=== PATIENT | female | born 1990 | race African-American/Black ===

== ENCOUNTER 2019-01-10 12:44 | Emergency (ER) | payer SELFPAY ==
--- NOTE | 2019-01-10 14:16 | ER ---
Nurse's Notes [facility] Name: Felicia Barnhart Age: 28 yrs Sex: Female : 1990 Arrival Date: 01/10/2019 Time: 12:46 Bed 20 Private MD: Diagnosis: Influenza due to certain identified influenza viruses Presentation: 01/10 13:00 Presenting complaint: Patient states: cough, body aches, headache, chills that began aa5 yesterday. Transition of care: patient was not received from another setting of care. Onset of symptoms was December 2018. Risk Assessment: Do you want to hurt yourself or someone else? Patient reports no desire to harm self or others. Care prior to arrival: None. 13:00 Method Of Arrival: Ambulatory aa5 13:00 Acuity: ZAC 4 aa5 13:05 Initial Sepsis Screen: Does the patient meet any 2 criteria? HR > 90 bpm. No. Patient's bp initial sepsis screen is negative. Does the patient have a suspected source of infection? Yes: Productive cough/pneumonia. Triage Assessment: 13:05 General: Appears in no apparent distress. comfortable, Behavior is calm, cooperative, bp appropriate for age. Pain: Complains of pain in GENERAL MYALGIA. EENT: Reports nasal congestion. Neuro: No deficits noted. Cardiovascular: No deficits noted. Respiratory: Reports cough that is. GI: No signs and/or symptoms were reported involving the gastrointestinal system. : No signs and/or symptoms were reported regarding the genitourinary system. Derm: No deficits noted. Musculoskeletal: Circulation, motion, and sensation intact. Range of motion: intact in all extremities. MANAGER ENT: 13:02 LMP 12/31/2018 aa5 Historical: - Allergies: 13:02 No Known Allergies; aa5 - Home Meds: 13:02 None [Active]; aa5 - PMHx: 13:02 None; aa5 - PSHx: 13:02 ; aa5 - Immunization history:: Flu vaccine is not up to date. - Social history:: Smoking status: Patient/guardian denies using tobacco. - Ebola Screening: : No symptoms or risks identified at this time. Screenin:05 Abuse screen: Denies threats or abuse. Denies injuries from another. Nutritional bp screening: No deficits noted. Tuberculosis screening: No symptoms or risk factors identified. Fall Risk None identified. Assessment: 13:05 General: SEE TRIAGE NOTE. bp 14:44 Reassessment: PT D/C HOME AMBULATORY WITH FAMILY, DX WITH INFLUENZA. bp Vital Signs: 13:02 BP 106 / 73; Pulse 110; Resp 18 S; Temp 99.8(O); Pulse Ox 97% on R/A; Weight 99.79 kg aa5 (R); Height 5 ft. 11 in. (180.34 cm) (R); Pain 9/10; 14:48 BP 111 / 69; Pulse 97; Resp 18; Temp 99; Pulse Ox 98% ; bp 13:02 Body Mass Index 30.68 (99.79 kg, 180.34 cm) aa5 ED Course: 12:46 Patient arrived in ED. as 13:01 Triage completed. aa5 13:01 Arm band placed on. aa5 13:04 Chuy Amezquita PA is PHCP. jr8 13:04 Peter Segura MD is Attending Physician. jr8 13:05 Patient has correct armband on for positive identification. Bed in low position. Call bp light in reach. Side rails up X2. 13:10 Jose Alejandro Whitaker, RN is Primary Nurse. bp 13:39 Influenza Screen (a \T\ B) Sent. hb 13:39 Strep Sent. hb 14:48 No provider procedures requiring assistance completed. Patient did not have IV access bp during this emergency room visit. Administered Medications: 14:10 Drug: Tamiflu 75 mg Route: PO; bp 14:49 Follow up: Response: No adverse reaction; Medication administered at discharge. bp Outcome: 14:15 Discharge ordered by . [facility] 14:46 Discharged to home ambulatory, with family. bp 14:46 Condition: stable 14:46 Discharge instructions given to patient, Instructed on discharge instructions, follow up and referral plans. medication usage, Demonstrated understanding of instructions, follow-up care, medications, Prescriptions given X 3. 14:49 Patient left the ED. bp Signatures: Marcie Carter Audri, RN RN aa5 Chuy Amezquita PA PA jr8 Mya Daly RN RN Jose Alejandro Whitaker RN RN bp
--- NOTE | 2019-01-10 14:16 | EDPHYS ---
Physician Documentation [facility] Name: Felicia Barnhart Age: 28 yrs Sex: Female : 1990 Arrival Date: 01/10/2019 Time: 12:46 Bed 20 Private MD: ED Physician Peter Segura HPI: 01/10 13:29 This 28 yrs old Black Female presents to ER via Ambulatory with complaints of Flu jr8 Symptoms. 13:29 Onset: The symptoms/episode began/occurred acutely, yesterday. Associated signs and jr8 symptoms: Pertinent positives: cough, fever, headache. Modifying factors: The patient symptoms are alleviated by nothing, the patient symptoms are aggravated by nothing. The patient has not experienced similar symptoms in the past. The patient has not recently seen a physician. HEALTH SUPPORT SPECIALIST: 13:02 LMP 12/31/2018 aa5 Historical: - Allergies: 13:02 No Known Allergies; aa5 - Home Meds: 13:02 None [Active]; aa5 - PMHx: 13:02 None; aa5 - PSHx: 13:02 ; aa5 - Immunization history:: Flu vaccine is not up to date. - Social history:: Smoking status: Patient/guardian denies using tobacco. - Ebola Screening: : No symptoms or risks identified at this time. ROS: 13:29 Eyes: Negative for injury, pain, redness, and discharge, Neck: Negative for injury, jr8 pain, and swelling, Cardiovascular: Negative for chest pain, palpitations, and edema, Abdomen/GI: Negative for abdominal pain, nausea, vomiting, diarrhea, and constipation, Back: Negative for injury and pain, MS/Extremity: Negative for injury and deformity, Skin: Negative for injury, rash, and discoloration. 13:29 Constitutional: Positive for body aches, chills, fever. 13:29 Respiratory: Positive for cough, with no reported sputum, Negative for dyspnea on exertion, shortness of breath, sputum production, wheezing. 13:29 Neuro: Positive for headache, Negative for altered mental status, dizziness, gait disturbance, hearing loss, loss of consciousness, numbness, seizure activity, speech changes, syncope, near syncope, tingling, tinnitus, tremor, visual changes, weakness. Exam: 13:30 Eyes: Pupils equal round and reactive to light, extra-ocular motions intact. Lids and jr8 lashes normal. Conjunctiva and sclera are non-icteric and not injected. Cornea within normal limits. Periorbital areas with no swelling, redness, or edema. ENT: Nares patent. No nasal discharge, no septal abnormalities noted. Tympanic membranes are normal and external auditory canals are clear. Oropharynx with no redness, swelling, or masses, exudates, or evidence of obstruction, uvula midline. Mucous membranes moist. Neck: Trachea midline, no thyromegaly or masses palpated, and no cervical lymphadenopathy. Supple, full range of motion without nuchal rigidity, or vertebral point tenderness. No Meningismus. Cardiovascular: Regular rate and rhythm with a normal S1 and S2. No gallops, murmurs, or rubs. Normal PMI, no JVD. No pulse deficits. Respiratory: Lungs have equal breath sounds bilaterally, clear to auscultation and percussion. No rales, rhonchi or wheezes noted. No increased work of breathing, no retractions or nasal flaring. Abdomen/GI: Soft, non-tender, with normal bowel sounds. No distension or tympany. No guarding or rebound. No evidence of tenderness throughout. Back: No spinal tenderness. No costovertebral tenderness. Full range of motion. Skin: Warm, dry with normal turgor. Normal color with no rashes, no lesions, and no evidence of cellulitis. MS/ Extremity: Pulses equal, no cyanosis. Neurovascular intact. Full, normal range of motion. Neuro: Awake and alert, GCS 15, oriented to person, place, time, and situation. Cranial nerves II-XII grossly intact. Motor strength 5/5 in all extremities. Sensory grossly intact. Cerebellar exam normal. Normal gait. Vital Signs: 13:02 BP 106 / 73; Pulse 110; Resp 18 S; Temp 99.8(O); Pulse Ox 97% on R/A; Weight 99.79 kg aa5 (R); Height 5 ft. 11 in. (180.34 cm) (R); Pain 9/10; 14:48 BP 111 / 69; Pulse 97; Resp 18; Temp 99; Pulse Ox 98% ; bp 13:02 Body Mass Index 30.68 (99.79 kg, 180.34 cm) aa5 MDM: 13:04 Patient medically screened. 8 14:14 Data reviewed: vital signs, nurses notes, lab test result(s), Flu: positive and as a jr8 result, I will discharge patient. Data interpreted: Pulse oximetry: on room air is 97 %. Interpretation: normal. Counseling: I had a detailed discussion with the patient and/or guardian regarding: the historical points, exam findings, and any diagnostic results supporting the discharge/admit diagnosis, lab results, the need for outpatient follow up, a family practitioner, to return to the emergency department if symptoms worsen or persist or if there are any questions or concerns that arise at home. 01/10 13:25 Order name: Strep; Complete Time: 14:01/10 13:25 Order name: Influenza Screen (a \T\ B); Complete Time: :01/10 13:52 Order name: Throat Culture EDMS Administered Medications: 14:10 Drug: Tamiflu 75 mg Route: PO; bp 14:49 Follow up: Response: No adverse reaction; Medication administered at discharge. bp Disposition: 17:21 Co-signature as Attending Physician, Peter Segura MD. rn Disposition: 01/10/19 14:15 Discharged to Home. Impression: Influenza due to certain identified influenza viruses. - Condition is Stable. - Discharge Instructions: Influenza, Adult. - Prescriptions for Tamiflu 75 mg Oral Capsule - take 1 capsule by ORAL route every 12 hours for 5 days; 10 capsule. Guaifenesin AC 10- 100 mg/5 mL Oral Liquid - take 10 milliliter by ORAL route every 4 hours As needed; 240 milliliter. Prednisone 20 mg Oral Tablet - take 1 tablet by ORAL route once daily for 5 days; 5 tablet. - Medication Reconciliation Form, Thank You Letter, Antibiotic Education, Prescription Opioid Use, Work release form form. - Follow up: Private Physician; When: As needed; Reason: Recheck today's complaints, Continuance of care, Re-evaluation by your physician. - Problem is new. - Symptoms have improved. Signatures: Dispatcher [employer] EDMS Peter Segura MD MD rn Calderon, Audri, RN RN aa5 Chuy Amezquita PA PA jr8 Jose Alejandro Whitaker RN RN bp Corrections: (The following items were deleted from the chart) 14:49 14:15 01/10/2019 14:15 Discharged to Home. Impression: Influenza due to certain bp identified influenza viruses. Condition is Stable. Forms are Medication Reconciliation Form, Thank You Letter, Antibiotic Education, Prescription Opioid Use. Follow up: Private Physician; When: As needed; Reason: Recheck today's complaints, Continuance of care, Re-evaluation by your physician. Problem is new. Symptoms have improved. jr8
[2019-01-10] MEDS ORDERED: OSELTAMIVIR 75 MG CAP ONE (14:50)
== END 2019-01-10 14:49 | disposition home or self-care (01) ==
LOC: ER 12:44
DX: J10.1 Influenza due to other identified influenza virus with other respiratory manifestations (principal)
CPT/HCPCS: 87070; 87081; 87804; 99283